=== PATIENT | male | born 1980 | race Caucasian/White ===

== ENCOUNTER 2017-02-10 09:47 | Emergency (ER) | payer OTHER ==
[~2017-02-10] VITALS: Ht 165.1 cm; Wt 62.8 kg
[2017-02-10 10:22] VITALS: BP 122/58
--- NOTE | 2017-02-10 10:58 | NUR ---
ASSUMED PATIENT CARE, CONCUR WITH TRIAGE ASSESSMENT. SEEN AND EVALUATED BY PROVIDER, MSE COMPLETED.
[2017-02-10] MEDS ORDERED: KETOROLAC 30 MG/ML VIAL IM ONE (11:05)
[2017-02-10 11:55] VITALS: BP 133/69
--- NOTE | 2017-02-10 11:58 | NUR ---
DISPO AND MEDICAL DECISION MAKING DC HOME WITH INSTRUCTIONS AND PRESCRIPTIONS, INSTRUCTED TO TAKE TYLENOL/MOTRIN FOR FEVER.
== END 2017-02-10 11:58 | disposition home or self-care (01) ==
LOC: MED 09:47
DX: H66.92 Otitis media, unspecified, left ear (principal); J11.1 Influenza due to unidentified influenza virus with other respiratory manifestations; J45.909 Unspecified asthma, uncomplicated
CPT/HCPCS: 96372; 99283; J1885

== ENCOUNTER 2018-03-27 08:48 | Emergency (ER) | payer OTHER ==
[~2018-03-27] VITALS: Ht 162.6 cm; Wt 64.1 kg
[2018-03-27 09:00] VITALS: BP 125/79
--- NOTE | 2018-03-27 09:00 | NUR ---
PT AMBULATES TO BED 12
--- NOTE | 2018-03-27 09:10 | NUR ---
C/O LARGE PLASTIC BARREL 9 FT HIGH FELL ONTO PT'S HEAD; RIGHT PARIETAL SUPERFICIAL LACERATION NOTED----DENIES KO STATES AWOKE WITH DIZZINESS AND CONFUSED TODAY NO OTHER INJURIES NOTED---ADDS HEMATOMA HAS SUBSIDED. PATIENT STATES PAIN OF 7/10 AT THIS TIME; VSS; PATIENT POSITIONED FOR COMFORT; HOB ELEVATED; BEDRAILS UP X1; BED DOWN. ER MD MADE AWARE OF PT STATUS.
[2018-03-27 09:40] VITALS: BP 123/67
--- NOTE | 2018-03-27 09:41 | NUR ---
Patient discharged with v/s stable. Written and verbal after care instructions given and explained. Patient verbalized understanding. Ambulatory with steady gait. All questions addressed prior to discharge. Advised to follow up with PMD.
== END 2018-03-27 09:41 | disposition home or self-care (01) ==
LOC: MED 08:48
DX: S06.0X0A Concussion without loss of consciousness, initial encounter (principal); S00.01XA Abrasion of scalp, initial encounter; R03.0 Elevated blood-pressure reading, without diagnosis of hypertension; J45.909 Unspecified asthma, uncomplicated; F17.200 Nicotine dependence, unspecified, uncomplicated; W20.8XXA Other cause of strike by thrown, projected or falling object, initial encounter; Y93.89 Activity, other specified; Y92.69 Other specified industrial and construction area as the place of occurrence of the external cause; Y99.0 Civilian activity done for income or pay
CPT/HCPCS: 99283

== ENCOUNTER 2018-04-08 05:25 | Emergency (ER) | payer OTHER ==
[~2018-04-08] VITALS: Ht 165.1 cm; Wt 65.8 kg
[2018-04-08 05:30] VITALS: BP 129/79
--- NOTE | 2018-04-08 05:33 | NUR ---
PT TAKEN TO BED 9
--- NOTE | 2018-04-08 05:34 | NUR ---
PATIENT PRESENTS ER WITH C/O PAIN/BODY ACHES, COUGH AND CONGESTION, AND FEVER X 2 DAYS; PATIENT STATES PAIN OF 7/10 AT THIS TIME; TP IS A/OX 4. PT STATED HE HAD A FEVER YESTERDAY BUT NO FEVER AT THIS TIME IN ER. PT HAS SOME N/V DENIES DIRRHEA. VSS; PATIENT POSITIONED FOR COMFORT; HOB ELEVATED; BEDRAILS UP X2; BED DOWN. ER MD MADE AWARE OF PT STATUS.
--- NOTE | 2018-04-08 05:43 | NUR ---
Dr. Khan evaluating patient at bedside.
[2018-04-08] MEDS ORDERED: KETOROLAC 30 MG/ML VIAL IM ONE (05:55)
[2018-04-08] MEDS ORDERED: OSELTAMIVIR PHOSPHATE 75 MG CAP PO ONE (06:05)
[2018-04-08 06:14] VITALS: BP 131/62
--- NOTE | 2018-04-08 06:14 | NUR ---
Patient discharged with v/s stable. Written and verbal after care instructions given and explained. Patient alert, oriented and verbalized understanding of instructions. Ambulatory with steady gait. All questions addressed prior to discharge. ID band removed. Patient advised to follow up with PMD. Rx of Tamiflu given. Patient educated on indication of medication including possible reaction and side effects. Opportunity to ask questions provided and answered.
== END 2018-04-08 06:14 | disposition home or self-care (01) ==
LOC: MED 05:25
DX: J10.1 Influenza due to other identified influenza virus with other respiratory manifestations (principal); J45.909 Unspecified asthma, uncomplicated
CPT/HCPCS: 87804; 96372; 99283; J1885; 36415

== ENCOUNTER 2018-09-20 13:32 | Emergency (ER) | payer MEDICAID, OTHER ==
[~2018-09-20] VITALS: Ht 167.6 cm; Wt 65.5 kg
[2018-09-20 13:36] VITALS: BP 117/83
--- NOTE | 2018-09-20 13:42 | NUR ---
Patient ambulated to bed 7. RN evaluating patient at bedside.
--- NOTE | 2018-09-20 13:43 | NUR ---
38 Y MALE C/O LT SHOULDER PAIN X3 WEEKS AGO. PT REPORTS FALLING FROM SECOND FLOOR ONTO CONCRETE WHEN RAILING GAVE OUT 3 WEEKS AGO. THOUGHT HE WAS GETTING BETTER UNTIL HE CAUGHT HIS SON COMING DOWN A SLIDE YESTERDAY. TINGLING/BURNING LT SHOULDER PAIN THAT RADIATES DOWN LT SIDE DOWN TO LT GROIN. VSS. [id number]. +CMS. NO OBVIOUS DEFORMITY. BED IS DOWN, LOCKED, BED RAIL X 1, ERMD TO SEE PT. MEDHX:DENIES RX:DENIES
--- NOTE | 2018-09-20 14:10 | NUR ---
JAYCEE JOHN AT BEDSIDE
[2018-09-20] MEDS ORDERED: IBUPROFEN 600 MG TAB PO ONE (14:15)
--- NOTE | 2018-09-20 14:16 | NUR ---
XRAY AT BEDSIDE
--- NOTE | 2018-09-20 14:38 | NUR ---
ELEONORA EMT AT BEDSIDE FOR SLING
--- NOTE | 2018-09-20 14:57 | NUR ---
PA JOHN RE-EVALUATING PT
[2018-09-20 15:00] VITALS: BP 131/69
--- NOTE | 2018-09-20 15:00 | NUR ---
Patient discharged with v/s stable. Written and verbal after care instructions given and explained. Patient alert, oriented and verbalized understanding of instructions. Ambulatory with steady gait. All questions addressed prior to discharge. ID band removed. Patient advised to follow up with PMD. Rx of IBUPROFEN given. Patient educated on indication of medication including possible reaction and side effects. Opportunity to ask questions provided and answered. PT INSTRUCTED TO APPLY ICE TO SITE NEEDED.
== END 2018-09-20 15:00 | disposition home or self-care (01) ==
LOC: MED 13:32
DX: S46.912A Strain of unspecified muscle, fascia and tendon at shoulder and upper arm level, left arm, initial encounter (principal); J45.909 Unspecified asthma, uncomplicated; X58.XXXA Exposure to other specified factors, initial encounter; Y93.89 Activity, other specified; Y92.89 Other specified places as the place of occurrence of the external cause; Y99.8 Other external cause status
CPT/HCPCS: 73030; 99283; Q0092